=== PATIENT | female | born 1990 | race Caucasian/White ===

== ENCOUNTER 2020-04-07 10:44 | Emergency (ER) | payer MEDICAID, OTHER, SELFPAY ==
[2020-04-07 11:16] VITALS: BP 139/72; PULSE 98; RESP 18; TEMP 36.6; O2SAT 100; BMI 36.3
--- NOTE | 2020-04-07 11:50 | PC.NURSE ---
Pt reports brown spotting since turning to bright red spotting 2 days ago. Denies abd pain and dizziness. Pos preg test at [facility].
--- NOTE | 2020-04-07 11:51 | US_ITS ---
EXAMINATION: FIRST TRIMESTER OB ULTRASOUND CLINICAL INFORMATION: Abdominal pain and bleeding COMPARISON: None TECHNIQUE: Transabdominal and transvaginal first trimester OB ultrasound FINDINGS: The uterus is normal in size and shape measures 6.4 x 3.5 x 4.7 cm in dimension. The endometrium is thickened measuring 1.7 cm. No intrauterine is seen. No focal uterine lesion is seen. The cervix is normal appearing. The right ovary is normal-appearing and measures 2.5 x 1.6 x 1.8 cm. The left ovary measures 3.2 x 3.3 x 3.4 cm and contains a 2.1 x 1.5 x 2 cm simple cyst. There is a small amount of fluid in the pelvis. US/US OB transvaginal IMPRESSION: No intrauterine seen. 2.1 x 1.5 x 2 cm simple left ovarian cyst and small amount of fluid in the pelvis. Correlation with quantitative beta hCG and follow-up OB ultrasound to ensure development of an intrauterine is recommended.
--- NOTE | 2020-04-07 11:51 | US_ITS ---
EXAMINATION: FIRST TRIMESTER OB ULTRASOUND CLINICAL INFORMATION: Abdominal pain and bleeding COMPARISON: None TECHNIQUE: Transabdominal and transvaginal first trimester OB ultrasound FINDINGS: The uterus is normal in size and shape measures 6.4 x 3.5 x 4.7 cm in dimension. The endometrium is thickened measuring 1.7 cm. No intrauterine is seen. No focal uterine lesion is seen. The cervix is normal appearing. The right ovary is normal-appearing and measures 2.5 x 1.6 x 1.8 cm. The left ovary measures 3.2 x 3.3 x 3.4 cm and contains a 2.1 x 1.5 x 2 cm simple cyst. There is a small amount of fluid in the pelvis. US/US OB <= 14 weeks fetus IMPRESSION: No intrauterine seen. 2.1 x 1.5 x 2 cm simple left ovarian cyst and small amount of fluid in the pelvis. Correlation with quantitative beta hCG and follow-up OB ultrasound to ensure development of an intrauterine is recommended.
--- NOTE | 2020-04-07 11:51 | ED.FEMALEGU ---
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 Mode of arrival: ambulatory Limitations: no limitations History of Present Illness MD elicited complaint: vaginal bleeding and pelvic pain Pertinent past history: other (suspects she is 4 to 5 weeks ) Onset (ago): day(s) (5) Location of symptoms: suprapubic Female Urogenital Radiation: Suprapubic and LRQ Quality of pain: sharp Consistency: intermittent Vaginal bleeding: scant Urinary symptoms: Dysuria, Urgency and Frequency Exacerbating factors: none Relieving factors: none Associated symptoms: denies other symptoms Sexual activity: Yes Patient : Yes Possible : at home test positive Related Data : 1 Previous Rx's Medication Instructions Recorded nitrofurantoin monohyd/m-cryst 100 mg PO BID 7 Days #14 cap 04/07/20 [Macrobid] Allergies Allergy/AdvReac Type Severity Reaction Status Date / Time No Known Allergies Allergy Unverified 01/17/20 19:37 [No Known Allergies*] Review of Systems Review of Systems: Constitutional : No Fever, No Chills ENT/Mouth : No sore throat, No Rhinorrhea Eyes: No Eye Pain, No Redness Cardiovascular : No Chest Pain, No SOB Respiratory : No Cough, No Sputum, No Wheezing Gastrointestinal : no Nausea, No Vomiting, No Diarrhea, positive abdominal pain, Genitourinary : positive irregular bleeding, pos Dysuria, pos Urinary Frequency, positive pelvic pain Musculoskeletal : No Myalgias Skin : No rash Neuro : No Weakness, No Headache Psych : No Anxiety/Panic, No Depression Heme/Lymph: No bruising, No Lymphadenopathy Endocrine : No Polyuria, No Polydipsia All other systems reviewed and are negative [facility] Past Medical History Medical History No known health problems : 1 Social History Social History Smoking Status: Never smoker Physical Exam Vital Signs: Vital Signs: Last Vital Signs Temp 98.0 F 04/07/20 13:43 Pulse 92 04/07/20 13:43 Resp 16 04/07/20 13:43 BP 125/78 04/07/20 13:43 Pulse Ox 98 04/07/20 13:43 Body Mass Index 36.3 Appearance: Alert. Oriented X3. No acute distress. Eyes: Pupils equal, round and reactive to light. ENT: Pharynx normal. Neck: Normal inspection. Neck supple. CVS: Normal heart rate and rhythm. Pulses normal. Respiratory: No respiratory distress. Breath sounds normal. Abdomen: Soft and non-tender. no rebound or guarding : no active bleeding, deferred pelvic just underwent one at [facility] Skin: Skin warm and dry. Normal skin color. Normal skin turgor. Extremities: No lower extremity edema. No calf ttp Neuro: Oriented X 3. No motor deficit. No sensory deficit. Course Course Course Narrative: patient with low quant and no IUP on US will discuss with Dr. Block no rebound or guarding, H/H stable BP stable, H/H stable, discussed findings with Dr. Block - follow up quant in 2 days send home with precautions, her abdomen is benign MDM - Female Genitourinary MDM Narrative Medical decision making narrative: 29 yo female G1 approx 4 to 5 weeks here with RLQ pain and spotting - no clots, abdominal exam benign doubt ectopic rupture or appendicitis, will need labs, just had pelvic exam at [facility] will defer repeat, quant level, Rh status, US to evaluate IUP and ovary Lab Data Result diagrams: 04/07/20 12:16 04/07/20 12:16 Labs: Lab Results 04/07/20 04/07/20 04/07/20 Range/Units 12:10 12:16 12:16 WBC 6.9 (4.8-10.8) X10*3/uL RBC 4.40 (4.20-5.50) X10*6/uL Hgb 12.8 (12.0-16.0) g/dl Hct 38.7 (37-47) % MCV 88.0 (80-98) fL MCH 29.1 (27.0-33.0) pg MCHC 33.1 (31.0-35.0) g/dl RDW 12.6 (11.0-16.0) % Plt Count 238 (160-400) X10*3/uL MPV 10.6 (9.4-12.3) fL Immature Gran % (Auto) 0.1 (0.0-0.4) % Neut % (Auto) 79.5 H (45-73) % Lymph % (Auto) 14.4 L (20-40) % Caroline % (Auto) 5.9 (2-11) % Eos % (Auto) 0.0 (0-4) % Baso % (Auto) 0.1 (0-2) % Lymph # (Auto) 1.0 L (1.2-4.9) X10*3/uL [place] # (Auto) 0.4 (0.1-1.2) X10*3/uL Eos # (Auto) 0.0 (0.0-0.4) X10*3/uL Baso # (Auto) 0.0 (0.0-0.2) X10*3/uL Abs Immat Gran (auto) 0.01 (0.00-0.03) X10*3/uL Absolute Neuts (auto) 5.5 (2.0-8.3) X10*3/uL Absolute Nucleated RBC 0.000 (0.0-0.012) X10*3/uL Nucleated RBC % (auto) 0.0 (0.0-0.2) /100WBC Hold Blue Top SEE NOTE Sodium (135-145) mmol/L Potassium (3.3-5.1) mmol/l Chloride (96-108) mmol/L Carbon Dioxide (22-29) mmol/L Anion Gap (12-20) BUN (9-16) mg/dL Creatinine (0.5-1.4) mg/dL Estim Creat Clear Calc Estimated GFR Random Glucose (60-115) mg/dL Calcium (8.4-10.2) mg/dL Beta HCG, Quant mIU/mL Urine Color YELLOW Urine Appearance CLOUDY Urine pH 5.5 (5.0-8.0) Ur Specific [place] >= 1.030 H (1.005-1.025) Urine Protein NEG (NEG-TRACE) MG/DL Urine Glucose (UA) NEG (NEG) MG/DL Urine Ketones >=80 (NEG) MG/DL Urine Blood 3+ H (NEG) Urine Nitrite NEG (NEG) Ur Leukocyte Esterase TRACE H (NEG) Urine RBC 15-29 H (0) /HPF Urine WBC 10-14 H (0-4) /HPF Ur Squamous Epith Cells 4+ /LPF Urine Bacteria 2+ /LPF Blood Type 04/07/20 04/07/20 Range/Units 12:16 12:16 WBC (4.8-10.8) X10*3/uL RBC (4.20-5.50) X10*6/uL Hgb (12.0-16.0) g/dl Hct (37-47) % MCV (80-98) fL MCH (27.0-33.0) pg MCHC (31.0-35.0) g/dl RDW (11.0-16.0) % Plt Count (160-400) X10*3/uL MPV (9.4-12.3) fL Immature Gran % (Auto) (0.0-0.4) % Neut % (Auto) (45-73) % Lymph % (Auto) (20-40) % Caroline % (Auto) (2-11) % Eos % (Auto) (0-4) % Baso % (Auto) (0-2) % Lymph # (Auto) (1.2-4.9) X10*3/uL Caroline # (Auto) (0.1-1.2) X10*3/uL Eos # (Auto) (0.0-0.4) X10*3/uL Baso # (Auto) (0.0-0.2) X10*3/uL Abs Immat Gran (auto) (0.00-0.03) X10*3/uL Absolute Neuts (auto) (2.0-8.3) X10*3/uL Absolute Nucleated RBC (0.0-0.012) X10*3/uL Nucleated RBC % (auto) (0.0-0.2) /100WBC Hold Blue Top Sodium 140 (135-145) mmol/L Potassium 4.6 (3.3-5.1) mmol/l Chloride 104 (96-108) mmol/L Carbon Dioxide 24 (22-29) mmol/L Anion Gap 17 (12-20) BUN 8 L (9-16) mg/dL Creatinine 0.74 (0.5-1.4) mg/dL Estim Creat Clear Calc 105.6 Estimated GFR > 60 Random Glucose 95 (60-115) mg/dL Calcium 9.5 (8.4-10.2) mg/dL Beta HCG, Quant 451 mIU/mL Urine Color Urine Appearance Urine pH (5.0-8.0) Ur Specific [place] (1.005-1.025) Urine Protein (NEG-TRACE) MG/DL Urine Glucose (UA) (NEG) MG/DL Urine Ketones (NEG) MG/DL Urine Blood (NEG) Urine Nitrite (NEG) Ur Leukocyte Esterase (NEG) Urine RBC (0) /HPF Urine WBC (0-4) /HPF Ur Squamous Epith Cells /LPF Urine Bacteria /LPF Blood Type O Positive Discharge Plan Discharge Clinical Impression: Dysfunctional uterine bleeding, Early stage of UTI (urinary tract infection) Qualifiers: Urinary tract infection type: acute cystitis Hematuria presence: with hematuria Qualified Code(s): N30.01 - Acute cystitis with hematuria Patient Disposition: Home, Self-Care Instructions: Ectopic (DC), Threatened Miscarriage (ED), Urinary Tract Infection in (ED) Additional Instructions: return to ED for any worsening symptoms or concerns you're very early - you need to get a repeat hcg test in 2 days to r/o ectopic , early , miscarriage, stay hydrated, return for severe pain, worsening in bleeding Prescriptions: New nitrofurantoin monohyd/m-cryst [Macrobid] 100 mg capsule 100 mg PO BID 7 Days Qty: 14 RF: 0 Referrals: Brendan Block MD [Physician] - 2 days (call today, repeat hormone level in 2 days) Interventions: ED Discharge Assessment Last Done: 04/07/20 14:12 Discharge Date/Time: 04/07/20 14:12 Print Language: Cameroonian
[2020-04-07 12:08] VITALS: BP 136/80; PULSE 80; RESP 16; O2SAT 100
[2020-04-07 12:21] LABS: MANUAL DIFF FLAG NO
[2020-04-07 12:24] LABS: Basophils Percent Auto 0.1 % (0-2); Hematocrit 38.7 % (37-47); Hemoglobin 12.8 g/dl (12.0-16.0); Imm Gran Abs Auto 0.01 X10*3/uL (0.00-0.03); Imm Gran Pct Auto 0.1 % (0.0-0.4); Lymphocytes Percent Auto 14.4 % (20-40); Mean Corpuscular HGB Conc 33.1 g/dl (31.0-35.0); Mean Corpuscular Hemoglobin 29.1 pg (27.0-33.0); Mean Platelet Volume 10.6 fL (9.4-12.3); Monocytes Absolute Auto 0.4 X10*3/uL (0.1-1.2); Monocytes Percent Auto 5.9 % (2-11); Neutrophils Absolute Auto 5.5 X10*3/uL (2.0-8.3); Neutrophils Percent Auto 79.5 % (45-73); Platelet Count 238 X10*3/uL (160-400); Red Cell Distribution Width 12.6 % (11.0-16.0); White Blood Count 6.9 X10*3/uL (4.8-10.8)
[2020-04-07 12:25] LABS: Appearance Urine CLOUDY; Color Urine YELLOW; Glucose Urine UA NEG (NEG); Leukocyte Esterase Urine TRACE (NEG); Nitrite Urine NEG (NEG); PH 5.5 (5.0-8.0); Specific Gravity - Urine >= 1.030 (1.005-1.025); Urine Blood 3+ (NEG); Urine Ketones >=80 MG/DL (NEG); Urine Protein NEG (NEG-TRACE)
[2020-04-07 12:32] LABS: Bacteria Urine 2+ /LPF; Squamous Epithelial Cell Urine 4+ /LPF
[2020-04-07 12:51] LABS: Anion Gap 17 (12-20); Blood Urea Nitrogen 8 mg/dL (9-16); Calcium 9.5 mg/dL (8.4-10.2); Carbon Dioxide 24 mmol/L (22-29); Chloride 104 mmol/L (96-108); Creatinine Clr Calc Pharmacy 105.6; Estimated Glomerular Filt Rate > 60; Glucose Random 95 mg/dL (60-115); Potassium 4.6 mmol/l (3.3-5.1); Sodium 140 mmol/L (135-145)
[2020-04-07 12:58] LABS: HCG Quantitative 451 mIU/mL
[2020-04-07 13:01] VITALS: BP 128/76
--- NOTE | 2020-04-07 13:41 | PM.GYNCN ---
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 Hoang regarding Cinthia Wheeler is a 29 year old female . Patient is 4-5 weeks of gestation presented with vaginal spotting and mild groin pain. 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 - Results Labs CBC & Chem 7: 04/07/20 12:16 04/07/20 12:16 Labs: Short CBC 04/07/20 Range/Units 12:16 WBC 6.9 (4.8-10.8) X10*3/uL Hgb 12.8 (12.0-16.0) g/dl Hct 38.7 (37-47) % Plt Count 238 (160-400) X10*3/uL BMP 04/07/20 12:16 Sodium 140 Potassium 4.6 Chloride 104 Carbon Dioxide 24 BUN 8 L Creatinine 0.74 Calcium 9.5 Urine 04/07/20 Range/Units 12:10 Urine Color YELLOW Urine Appearance CLOUDY Urine pH 5.5 (5.0-8.0) Ur Specific [place] >= 1.030 H (1.005-1.025) Urine Protein NEG (NEG-TRACE) MG/DL Urine Glucose (UA) NEG (NEG) MG/DL Assessment and Plan (1) Early stage of : Status: Acute HCG in 48 hours, SAB/ectopic instructions to be given the patient, the patient is to come in to the emergency room or or call back in case of abdominal pain vaginal bleeding nausea or vomiting otherwise follow-up in our office in 48 hours. Discussed the plan with Dr. Hoang
[2020-04-07 13:43] VITALS: BP 125/78; PULSE 92; RESP 16; TEMP 36.7; O2SAT 98
== END 2020-04-07 14:12 | disposition home or self-care (01) ==
PROVIDERS: Emergency Provider Emergency Medicine; PCP Internal Medicine
DX: O20.9 Hemorrhage in early pregnancy, unspecified (principal); Z3A.01 Less than 8 weeks gestation of pregnancy; O23.11 Infections of bladder in pregnancy, first trimester; N30.01 Acute cystitis with hematuria
CPT/HCPCS: 36415; 76801; 76817; 80048; 81001; 84702; 85025; 86900; 86901; 87086; 99283; 99284

== ENCOUNTER 2020-04-09 08:14 | Outpatient (REF) | payer MEDICAID, OTHER, SELFPAY ==
[2020-04-09 09:36] LABS: HCG Quantitative 655 mIU/mL
[2020-04-12 06:37] LABS: CT PCR NOT DETECTED (Not Detect.); NG PCR NOT DETECTED (Not Detect.)
== END 2020-04-09 08:15 | disposition home or self-care (01) ==
LOC: HO.LAB 08:14
PROVIDERS: Visit Provider Obstetrics & Gynecology
DX: Z34.90 Encounter for supervision of normal pregnancy, unspecified, unspecified trimester (principal)
CPT/HCPCS: 84702; 87491; 87591; 99212

== ENCOUNTER 2020-04-11 08:32 | Outpatient (REF) | payer MEDICAID, SELFPAY ==
--- NOTE | 2020-04-11 08:48 | US_ITS ---
EXAMINATION: ULTRASOUND OB LESS THAN 14 WEEKS. CLINICAL INFORMATION: Redundant . COMPARISON: None TECHNIQUE: Routine transabdominal ultrasound pelvis is performed FINDINGS: The uterus is midline. No intrauterine of pole seen. There is no visualization of yolk sac or heart beat. The right ovary measures 2.4 x 1.8 x 2.0 cm and appears unremarkable. Left ovary measures 3.0 x 2.3 x 2.6 cm. There is anechoic cyst measuring 2.2 x 1.9 x 2.1 cm. There is no free fluid in the cul-de-sac. US/US OB <= 14 weeks fetus IMPRESSION: No intrauterine seen. No pole identified. There is no adnexal mass. There is a small cyst 2.2 cm left ovarian cyst. Otherwise both ovaries are unremarkable.
--- NOTE | 2020-04-11 08:48 | US_ITS ---
EXAMINATION: ULTRASOUND OB LESS THAN 14 WEEKS. CLINICAL INFORMATION: Redundant . COMPARISON: None TECHNIQUE: Routine transabdominal ultrasound pelvis is performed FINDINGS: The uterus is midline. No intrauterine of pole seen. There is no visualization of yolk sac or heart beat. The right ovary measures 2.4 x 1.8 x 2.0 cm and appears unremarkable. Left ovary measures 3.0 x 2.3 x 2.6 cm. There is anechoic cyst measuring 2.2 x 1.9 x 2.1 cm. There is no free fluid in the cul-de-sac. US/US OB transvaginal IMPRESSION: No intrauterine seen. No pole identified. There is no adnexal mass. There is a small cyst 2.2 cm left ovarian cyst. Otherwise both ovaries are unremarkable.
[2020-04-11 10:02] LABS: HCG Quantitative 945 mIU/mL
== END 2020-04-11 08:33 | disposition home or self-care (01) ==
LOC: HO.US 08:32
PROVIDERS: PCP Internal Medicine; Visit Provider Obstetrics & Gynecology
DX: Z34.90 Encounter for supervision of normal pregnancy, unspecified, unspecified trimester (principal)
CPT/HCPCS: 76801; 76817; 84702; 99212

== ENCOUNTER 2020-04-13 10:08 | Emergency (ER) | payer MEDICAID, OTHER, SELFPAY ==
[2020-04-13 10:40] VITALS: BP 131/88; PULSE 89; RESP 15; TEMP 36.8; O2SAT 99; BMI 33.6
--- NOTE | 2020-04-13 10:50 | US_ITS ---
EXAMINATION: ULTRASOUND OB LESS THAN 14 WEEKS CLINICAL INFORMATION: Abdominal pain, COMPARISON: Ultrasound OB 04/11/2020 TECHNIQUE: Routine transabdominal and transvaginal ultrasound of pelvis is performed. FINDINGS: The uterus appears midline measuring 6.8 cm in length, 3.48 cm in AP and 5.7 cm in transverse dimension.. There is no intrauterine gestational sac, pole or heart visualized. No yolk sac or motion either. The endometrial thickness is 0.81 cm. A tiny anechoic cyst is seen in the cervix most likely nabothian cysts. A migrated small gestational sac cannot be excluded. The right ovary measures 2.93 x 1.74 x 2.59 cm. The ovary is unremarkable. The left ovary measures 3.46 a 2.18 x 3.437. A small corpus luteal cyst is visualized measuring 1.2 x 1.5 x 1.7 cm. There is minimal free fluid in the cul-de-sac. US/US OB <= 14 weeks fetus IMPRESSION: No intrauterine gestational sac or pole seen. There is a small anechoic cyst in the cervix most likely nabothian cyst, less likely migrated gestational sac. Small corpus luteal cyst left ovary. Previously there is a small anechoic cyst in the left ovary measuring 2.2 cm. Right ovary is unremarkable. Small free fluid in cul-de-sac. No adnexal mass seen.
--- NOTE | 2020-04-13 10:50 | US_ITS ---
EXAMINATION: ULTRASOUND OB LESS THAN 14 WEEKS CLINICAL INFORMATION: Abdominal pain, COMPARISON: Ultrasound OB 04/11/2020 TECHNIQUE: Routine transabdominal and transvaginal ultrasound of pelvis is performed. FINDINGS: The uterus appears midline measuring 6.8 cm in length, 3.48 cm in AP and 5.7 cm in transverse dimension.. There is no intrauterine gestational sac, pole or heart visualized. No yolk sac or motion either. The endometrial thickness is 0.81 cm. A tiny anechoic cyst is seen in the cervix most likely nabothian cysts. A migrated small gestational sac cannot be excluded. The right ovary measures 2.93 x 1.74 x 2.59 cm. The ovary is unremarkable. The left ovary measures 3.46 a 2.18 x 3.437. A small corpus luteal cyst is visualized measuring 1.2 x 1.5 x 1.7 cm. There is minimal free fluid in the cul-de-sac. US/US OB transvaginal IMPRESSION: No intrauterine gestational sac or pole seen. There is a small anechoic cyst in the cervix most likely nabothian cyst, less likely migrated gestational sac. Small corpus luteal cyst left ovary. Previously there is a small anechoic cyst in the left ovary measuring 2.2 cm. Right ovary is unremarkable. Small free fluid in cul-de-sac. No adnexal mass seen.
--- NOTE | 2020-04-13 10:56 | ED.ABDPAIN ---
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 Otherwise no other associated symptoms in particular no nausea, no vomiting. Nothing improves the pain or nothing relieves the pain, never had similar pain in the past. Related Data Previous Rx's Medication Instructions Recorded nitrofurantoin monohyd/m-cryst 100 mg PO BID 7 Days #14 cap 04/07/20 [Macrobid] ibuprofen 800 mg PO TID PRN #60 tab 04/13/20 ondansetron 4 mg PO Q6H PRN #20 tab 04/13/20 oxycodone [Roxicodone] 5 mg PO Q6H PRN #14 tab 04/13/20 Allergies Allergy/AdvReac Type Severity Reaction Status Date / Time No Known Allergies Allergy Unverified 04/09/20 09:50 [No Known Allergies*] Review of Systems Review of Systems All other systems are reviewed and are negative Constitutional: Reports as per HPI and Reports no additional constitutional complaints Eyes: Reports as per HPI and Reports no additional eye complaints Reports system reviewed and no additional complaints, except as documented Cardiovascular: Reports as per HPI and Reports no additional cardiovascular complaints Respiratory: Reports as per HPI and Reports no additional respiratory complaints Gastrointestinal: Reports as per HPI and Reports no additional gastrointestinal complaints Genitourinary: Reports no additional female genitourinary complaints Musculoskeletal: Reports no additional musculoskeletal complaints Skin/Breast: Reports system reviewed and no additional complaints, except as docu Psychiatric: Reports no additional psychiatric complaints Endocrine: Reports no additional endocrine complaints Hematologic/Lymphatic: Reports no additional hematologic/lymphatic complaints Allergic/Immunologic: Reports no additional allergic/immunologic complaints Reports system reviewed and no additional complaints, except as documented and Reports Abnormal speech present Physical Exam Vital Signs: Vital Signs: Last Vital Signs Temp 98.6 F 04/13/20 11:46 Pulse 67 04/13/20 14:00 Resp 16 04/13/20 14:00 BP 128/69 04/13/20 14:00 Pulse Ox 96 04/13/20 14:00 Body Mass Index 33.6 Vital signs have been reviewed as normal and appeared to be correct. Blood pressure normal. Heart rate normal. Respiration rate normal. Temperature normal. Oxygen saturation normal. Appearance: Alert. Oriented X3. No acute distress. Head: Normal external exam. Normocephalic. Atraumatic. No Sewell signs noted. No raccoon eyes noted Eyes: PERRLA. EOMI. Conjunctiva and sclera normal. Eyelids normal. ENT: EAC normal. TM's Normal. Pharynx normal. Uvula midline. Moist mucous membranes. No trismus noted. No drooling noted. No muffled voice noted. Neck: Normal inspection. Neck supple. FROM. No adenopathy. Thyroid Normal. No meningeal signs. No neck mass noted. CVS: Normal heart rate and rhythm. Heart sound normal. No murmurs noted. Pulses normal throughout. Respiratory: No respiratory distress. Painless inspiration. Breath sounds normal. No wheezes/rales/rhonchi noted. Chest nontender. No accessory muscle usage noted or decreased air movement noted. Abdomen: Soft and nontender. Bowel sounds normal in all 4 quadrants. No distention noted. No organomegaly noted. No visible injury noted. Back: No CVA tenderness. Full range of motion noted. Skin: Skin warm and dry. Normal skin color. Normal skin turgor. No rashes/lesions/lacerations noted. Extremities: No lower extremity edema. Extremities exhibit normal range of motion. Extremities nontender. Neuro: Oriented X 3. No motor deficit. No sensory deficit. Reflexes normal. MDM - Abdominal Pain MDM Narrative Medical decision making narrative: Assessment and plan. 29-year-old female in her early , patient presented with right lower quadrant pain for the past 9 days with vaginal bleed,. No IUP on the ultrasounds with abnormal rising of serum hCG serious, patient was seen and examined and evaluated by Dr. Cardozo from OBGYN service, who made a decision to give the patient methotrexate, medicine was ordered by Dr. aCrdozo to pharmacy will be given to the patient will observe the patient for 30 minutes after given the medicine, patient will need to visit with Dr. Cardozo in 2 days to repeat hCG. Patient was made aware of the plan using the interpretation service patient fully understand risk and side effect of the procedure today. Lab Data Result diagrams: 04/13/20 11:50 04/13/20 11:50 Labs: Lab Results 04/13/20 04/13/20 Range/Units 11:50 11:50 WBC 2.7 L (4.8-10.8) X10*3/uL RBC 4.69 (4.20-5.50) X10*6/uL Hgb 13.6 (12.0-16.0) g/dl Hct 40.7 (37-47) % MCV 86.8 (80-98) fL MCH 29.0 (27.0-33.0) pg MCHC 33.4 (31.0-35.0) g/dl RDW 12.2 (11.0-16.0) % Plt Count 185 (160-400) X10*3/uL MPV 11.2 (9.4-12.3) fL Immature Gran % (Auto) 0.4 (0.0-0.4) % Neut % (Auto) 39.9 L (45-73) % Lymph % (Auto) 44.8 H (20-40) % [place] % (Auto) 14.9 H (2-11) % Eos % (Auto) 0.0 (0-4) % Baso % (Auto) 0.0 (0-2) % Lymph # (Auto) 1.2 (1.2-4.9) X10*3/uL [place] # (Auto) 0.4 (0.1-1.2) X10*3/uL Eos # (Auto) 0.0 (0.0-0.4) X10*3/uL Baso # (Auto) 0.0 (0.0-0.2) X10*3/uL Abs Immat Gran (auto) 0.01 (0.00-0.03) X10*3/uL Absolute Neuts (auto) 1.1 L (2.0-8.3) X10*3/uL Absolute Nucleated RBC 0.000 (0.0-0.012) X10*3/uL Nucleated RBC % (auto) 0.0 (0.0-0.2) /100WBC Sodium 138 (135-145) mmol/L Potassium 4.1 (3.3-5.1) mmol/l Chloride 101 (96-108) mmol/L Carbon Dioxide 25 (22-29) mmol/L Anion Gap 16 (12-20) BUN 9 (9-16) mg/dL Creatinine 0.71 (0.5-1.4) mg/dL Estim Creat Clear Calc 114.5 Estimated GFR > 60 Random Glucose 97 (60-115) mg/dL Calcium 8.9 D (8.4-10.2) mg/dL Total Bilirubin 0.4 (0.0-1.0) mg/dL Direct Bilirubin 0.2 (0.0-0.5) mg/dL AST 22 (5-31) U/L ALT 22 (0-31) U/L Alkaline Phosphatase 27 L (39-117) U/L Total Protein 7.8 (6.5-8.0) g/dL Albumin 4.4 (3.5-5.0) g/dL Lipase 22 (8-78) U/L Beta HCG, Quant 1217 mIU/mL Imaging Data Limited Ob pelvis ultrasound: Radiologist's impression: No intrauterine gestational sac or pole seen. There is a small anechoic cyst in the cervix most likely nabothian cyst, less likely migrated gestational sac. Small corpus luteal cyst left ovary. Previously there is a small anechoic cyst in the left ovary measuring 2.2 cm. Right ovary is unremarkable. Small free fluid in cul-de-sac. No adnexal mass seen. Discharge Plan Discharge Clinical Impression: Ectopic Qualifiers: Location of ectopic : unspecified location Intrauterine status: without intrauterine Qualified Code(s): O00.90 - Unspecified ectopic without intrauterine Patient Disposition: Home, Self-Care Instructions: Ectopic (DC) Prescriptions: New ibuprofen 800 mg tablet 800 mg PO TID PRN (Reason: pain) Qty: 60 RF: 1 oxycodone [Roxicodone] 5 mg tablet 5 mg PO Q6H PRN (Reason: pain) Qty: 14 RF: 0 ondansetron 4 mg tablet,disintegrating 4 mg PO Q6H PRN (Reason: nausea and vomiting) Qty: 20 RF: 0 Continued nitrofurantoin monohyd/m-cryst [Macrobid] 100 mg capsule 100 mg PO BID 7 Days Qty: 14 RF: 0 Referrals: Vee Cardozo MD [Physician] - 2 days PMF Past Medical History Medical History No known health problems Social History Social History Alcohol intake: never Smoking Status: Never smoker Use of substances other than those prescribed or required for medical reasons: No Advance Directives: No Advance Directives Information Provided: No Sexual orientation: Straight/Heterosexual Gender identity: female
[2020-04-13 11:46] VITALS: BP 133/82; PULSE 90; RESP 16; TEMP 37; O2SAT 99
[2020-04-13 11:57] LABS: MANUAL DIFF FLAG NO
[2020-04-13 11:58] LABS: Hematocrit 40.7 % (37-47); Hemoglobin 13.6 g/dl (12.0-16.0); Imm Gran Abs Auto 0.01 X10*3/uL (0.00-0.03); Imm Gran Pct Auto 0.4 % (0.0-0.4); Lymphocytes Absolute Auto 1.2 X10*3/uL (1.2-4.9); Lymphocytes Percent Auto 44.8 % (20-40); Mean Corpuscular HGB Conc 33.4 g/dl (31.0-35.0); Mean Corpuscular Volume 86.8 fL (80-98); Mean Platelet Volume 11.2 fL (9.4-12.3); Monocytes Absolute Auto 0.4 X10*3/uL (0.1-1.2); Monocytes Percent Auto 14.9 % (2-11); Neutrophils Absolute Auto 1.1 X10*3/uL (2.0-8.3); Neutrophils Percent Auto 39.9 % (45-73); Platelet Count 185 X10*3/uL (160-400); Red Blood Count 4.69 X10*6/uL (4.20-5.50); Red Cell Distribution Width 12.2 % (11.0-16.0); White Blood Count 2.7 X10*3/uL (4.8-10.8)
[2020-04-13 12:00] VITALS: BP 133/82; PULSE 79; RESP 16; O2SAT 96
[2020-04-13 12:41] LABS: Alanine Aminotransferase 22 U/L (0-31); Albumin Level 4.4 g/dL (3.5-5.0); Alkaline Phosphatase 27 U/L (39-117); Anion Gap 16 (12-20); Aspartate Amino Transferase 22 U/L (5-31); Bilirubin Direct 0.2 mg/dL (0.0-0.5); Bilirubin Total 0.4 mg/dL (0.0-1.0); Blood Urea Nitrogen 9 mg/dL (9-16); Calcium 8.9 mg/dL (8.4-10.2); Carbon Dioxide 25 mmol/L (22-29); Chloride 101 mmol/L (96-108); Creatinine Clr Calc Pharmacy 114.5; Estimated Glomerular Filt Rate > 60; Glucose Random 97 mg/dL (60-115); Lipase 22 U/L (8-78); Potassium 4.1 mmol/l (3.3-5.1); Sodium 138 mmol/L (135-145); Total Protein 7.8 g/dL (6.5-8.0)
[2020-04-13 12:47] LABS: HCG Quantitative 1217 mIU/mL
[2020-04-13] MEDS: 0.9 % Sodium Chloride 1,000 ML 999 ML IVCONT (13:00)
--- NOTE | 2020-04-13 13:19 | PC.NURSE ---
dr. huff (ob) at bedside pt aware of plan of care with spanish medical interpreter.
[2020-04-13 14:00] VITALS: BP 128/69; PULSE 67; RESP 16; O2SAT 96
--- NOTE | 2020-04-13 14:47 | P.CONOB_ITS ---
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 She was previously seen by Dr. Block and advised to present to the ER today for repeat HCG in the setting of desired and abnormal rise in the HCG level. She reports that her pain is better right now. She has been having RLQ pain for nine days. She has previously been diagnosed with PCOS and reports that periods are irregular. She had been trying to get . She denies feeling SOB, chest pain, dizziness. 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 - Review of Systems Review of Systems ROS Unobtainable: All systems reviewed & are unremarkable except as noted in HPI and below OB PMFSH Past Medical History Medical History No known health problems Social History Social History Alcohol intake: never Smoking Status: Never smoker Use of substances other than those prescribed or required for medical reasons: No Advance Directives: No Advance Directives Information Provided: No Sexual orientation: Straight/Heterosexual Gender identity: female Meds Allergies Allergy/AdvReac Type Severity Reaction Status Date / Time No Known Allergies Allergy Unverified 04/09/20 09:50 [No Known Allergies*] 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 Physical Exam Vitals Vital signs: Temp Pulse Resp BP Pulse Ox 98.6 F 79 16 133/82 96 04/13/20 11:46 04/13/20 12:00 04/13/20 12:00 04/13/20 12:00 04/13/20 12:00 Body Mass Index 33.6 Constitutional General Appearance: Healthy appearing, Obese and Other (no acute distress) Lungs Respiratory Effort: No intercostal retractions and No accessory muscle usage 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 - Results Labs CBC & Chem 7: 04/13/20 11:50 04/13/20 11:50 Labs: Short CBC 04/13/20 Range/Units 11:50 WBC 2.7 L (4.8-10.8) X10*3/uL Hgb 13.6 (12.0-16.0) g/dl Hct 40.7 (37-47) % Plt Count 185 (160-400) X10*3/uL BMP 04/13/20 11:50 Sodium 138 Potassium 4.1 Chloride 101 Carbon Dioxide 25 BUN 9 Creatinine 0.71 Calcium 8.9 D Liver Function 04/13/20 Range/Units 11:50 Total Bilirubin 0.4 (0.0-1.0) mg/dL Direct Bilirubin 0.2 (0.0-0.5) mg/dL AST 22 (5-31) U/L ALT 22 (0-31) U/L Alkaline Phosphatase 27 L (39-117) U/L Albumin 4.4 (3.5-5.0) g/dL Assessment and Plan (1) Encounter for assessment for suspected ectopic : Problem details: This patient has a third abnormal rise in HCG: last HCG on 04/11 was 945; today is 1215, well below the expected minimal rise (seen in 99% of normal intrauterine pregnancies). Given RLQ pain, this is highly suspicious for ectopic . I explained to the patient that she has an abnormal , based on the abnormal rise in HCG. Based on US, we do not know whether this is an abnormal located in the uterus or a located outside of the uterus. I explained that we can do a procedure (D&C) to confirm the location; if what I remove from the uterus does not show any product, then she would need medical treatment of ectopic with methotrexate, a chemotherapeutic agent. I explained that if the procedure shows tissue in the uterus, then she would likely not require further treatment. I explained based on her pain, I suspect the is not located in the uterus, however I cannot know that for sure. I explained we can also skip the procedure and treat her for presumed ectopic with methotrexate. The down side of doing so is the possibility of giving her a chemotherapeutic agent that she may not have needed. We reviewed the common side effects of methotrexate, the necessary follow up, and activity restrictions during treatment. All of her questions were answered to the best of my ability. She elected to proceed with methotrexate administration. Consent reviewed and signed. Order form filled out. Rx's for pain and nausea sent to the pharmacy. Follow up with repeat bHcg level and phone visit on Tuesday. Status: Acute
[2020-04-13 16:01] LABS: Alanine Aminotransferase 20 U/L (0-31); Aspartate Amino Transferase 21 U/L (5-31); Blood Urea Nitrogen 7 mg/dL (9-16); Creatinine Clr Calc Pharmacy 119.6; Estimated Glomerular Filt Rate > 60
[2020-04-13 16:48] VITALS: BP 139/81; PULSE 95; RESP 16; O2SAT 100
[2020-04-13] MEDS: metHOTREXate sodium 125 MG/5 ML SYRINGE 90 MG IM (16:49)
[2020-04-13 17:36] VITALS: BP 117/70; PULSE 76; RESP 17; TEMP 37.2; O2SAT 99
[2020-04-13 17:47] LABS: Appearance Urine HAZY; Color Urine YELLOW; Glucose Urine UA NEG (NEG); Leukocyte Esterase Urine NEG (NEG); Nitrite Urine NEG (NEG); PH 5.5 (5.0-8.0); Specific Gravity - Urine 1.025 (1.005-1.025); Urine Blood 3+ (NEG); Urine Ketones 40 MG/DL (NEG); Urine Protein NEG (NEG-TRACE)
[2020-04-13 17:54] LABS: RBC Urine 50-75 /HPF (0); Squamous Epithelial Cell Urine 1+ /LPF
== END 2020-04-13 17:44 | disposition home or self-care (01) ==
PROVIDERS: Obstetrics & Gynecology; Emergency Provider Emergency Medicine; PCP Internal Medicine
DX: O00.90 Unspecified ectopic pregnancy without intrauterine pregnancy (principal); Z3A.01 Less than 8 weeks gestation of pregnancy
CPT/HCPCS: 36415; 76801; 76817; 80048; 80076; 81001; 82565; 83690; 84450; 84460; 84520; 84702; 85025; 96360; 96372; 99284; J9250

== ENCOUNTER 2020-04-16 12:20 | Outpatient (REF) | payer MEDICAID, SELFPAY ==
[2020-04-16 14:18] LABS: HCG Quantitative 1718 mIU/mL
== END 2020-04-16 12:21 | disposition home or self-care (01) ==
LOC: HO.LAB 12:20
PROVIDERS: PCP Internal Medicine; Visit Provider Obstetrics & Gynecology
DX: Z32.00 Encounter for pregnancy test, result unknown (principal)
CPT/HCPCS: 84702

== ENCOUNTER 2020-04-18 06:32 | Outpatient (REF) | payer MEDICAID, SELFPAY ==
[2020-04-18 07:39] LABS: Alanine Aminotransferase 38 U/L (0-31); Albumin Level 4.1 g/dL (3.5-5.0); Alkaline Phosphatase 24 U/L (39-117); Anion Gap 13 (12-20); Aspartate Amino Transferase 28 U/L (5-31); Bilirubin Total 0.4 mg/dL (0.0-1.0); Blood Urea Nitrogen 6 mg/dL (9-16); Calcium 8.8 mg/dL (8.4-10.2); Carbon Dioxide 28 mmol/L (22-29); Chloride 103 mmol/L (96-108); Estimated Glomerular Filt Rate > 60; Glucose Random 102 mg/dL (60-115); Potassium 3.9 mmol/l (3.3-5.1); Sodium 140 mmol/L (135-145); Total Protein 7.2 g/dL (6.5-8.0)
[2020-04-18 07:45] LABS: HCG Quantitative 1712 mIU/mL
[2020-04-18 11:06] LABS: MANUAL DIFF FLAG NO
[2020-04-18 11:12] LABS: Eosinophils Percent Auto 0.3 % (0-4); Hematocrit 36.2 % (37-47); Hemoglobin 12.3 g/dl (12.0-16.0); Imm Gran Abs Auto 0.01 X10*3/uL (0.00-0.03); Imm Gran Pct Auto 0.3 % (0.0-0.4); Lymphocytes Absolute Auto 0.9 X10*3/uL (1.2-4.9); Lymphocytes Percent Auto 25.6 % (20-40); Mean Corpuscular Hemoglobin 29.3 pg (27.0-33.0); Mean Corpuscular Volume 86.2 fL (80-98); Mean Platelet Volume 11.6 fL (9.4-12.3); Monocytes Absolute Auto 0.2 X10*3/uL (0.1-1.2); Monocytes Percent Auto 5.9 % (2-11); Neutrophils Absolute Auto 2.4 X10*3/uL (2.0-8.3); Neutrophils Percent Auto 67.9 % (45-73); Platelet Count 162 X10*3/uL (160-400); White Blood Count 3.6 X10*3/uL (4.8-10.8)
[2020-04-18 11:41] LABS: Alanine Aminotransferase 41 U/L (0-31); Aspartate Amino Transferase 31 U/L (5-31)
== END 2020-04-18 06:33 | disposition home or self-care (01) ==
LOC: HO.LAB 06:32
PROVIDERS: Obstetrics & Gynecology; Visit Provider Obstetrics & Gynecology
DX: O00.90 Unspecified ectopic pregnancy without intrauterine pregnancy (principal)
CPT/HCPCS: 36415; 80053; 84450; 84460; 84702; 85025; 86850; 86870; 86900; 86901; 87491; 87591; 99212

== ENCOUNTER 2020-04-21 08:09 | Outpatient (REF) | payer MEDICAID, SELFPAY ==
[2020-04-21 08:57] LABS: HCG Quantitative 1506 mIU/mL
[2020-04-23 12:40] LABS: C. trachomatis RNA TMA NOT DETECTED
[2020-04-23 12:43] LABS: N. gonorrhoeae RNA TMA NOT DETECTED
== END 2020-04-21 08:10 | disposition home or self-care (01) ==
LOC: HO.LAB 08:09
PROVIDERS: Obstetrics & Gynecology; PCP Internal Medicine; Visit Provider Obstetrics & Gynecology
DX: Z32.00 Encounter for pregnancy test, result unknown (principal)
CPT/HCPCS: 84702; 87491; 87591

== ENCOUNTER 2020-04-24 06:37 | Outpatient (REF) | payer MEDICAID, SELFPAY ==
[2020-04-24 07:41] LABS: Hemoglobin 10.7 g/dl (12.0-16.0); Neutrophils Absolute Auto 1.1 X10*3/uL (2.0-8.3); Red Cell Distribution Width 11.9 % (11.0-16.0)
[2020-04-24 07:42] LABS: Basophils Percent Auto 0.4 % (0-2); Eosinophils Percent Auto 0.4 % (0-4); Hematocrit 32.5 % (37-47); Lymphocytes Absolute Auto 1.2 X10*3/uL (1.2-4.9); Lymphocytes Percent Auto 45.2 % (20-40); Mean Corpuscular HGB Conc 32.9 g/dl (31.0-35.0); Mean Corpuscular Hemoglobin 28.7 pg (27.0-33.0); Mean Corpuscular Volume 87.1 fL (80-98); Mean Platelet Volume 11.2 fL (9.4-12.3); Monocytes Absolute Auto 0.3 X10*3/uL (0.1-1.2); Monocytes Percent Auto 10.8 % (2-11); Neutrophils Percent Auto 43.2 % (45-73); Platelet Count 131 X10*3/uL (160-400); Red Blood Count 3.73 X10*6/uL (4.20-5.50); White Blood Count 2.6 X10*3/uL (4.8-10.8)
[2020-04-24 08:04] LABS: Alanine Aminotransferase 66 U/L (0-31); Alkaline Phosphatase 32 U/L (39-117); Anion Gap 13 (12-20); Aspartate Amino Transferase 31 U/L (5-31); Bilirubin Total 0.3 mg/dL (0.0-1.0); Blood Urea Nitrogen 11 mg/dL (9-16); Calcium 8.8 mg/dL (8.4-10.2); Carbon Dioxide 26 mmol/L (22-29); Chloride 105 mmol/L (96-108); Estimated Glomerular Filt Rate > 60; Glucose Random 93 mg/dL (60-115); Potassium 4.1 mmol/l (3.3-5.1); Sodium 140 mmol/L (135-145); Total Protein 6.9 g/dL (6.5-8.0)
[2020-04-24 08:12] LABS: HCG Quantitative 1030 mIU/mL
[2020-04-26 10:42] LABS: C. trachomatis RNA TMA NOT DETECTED (NOT DETECTED); N. gonorrhoeae RNA TMA NOT DETECTED (NOT DETECTED)
== END 2020-04-24 06:38 | disposition home or self-care (01) ==
LOC: HO.LAB 06:37
PROVIDERS: PCP Internal Medicine; Visit Provider Obstetrics & Gynecology
DX: Z32.00 Encounter for pregnancy test, result unknown (principal)
CPT/HCPCS: 36415; 80053; 84702; 85025; 87491; 87591

== ENCOUNTER 2020-04-30 06:41 | Outpatient (REF) | payer MEDICAID, SELFPAY ==
[2020-04-30 07:47] LABS: Alanine Aminotransferase 36 U/L (0-31); Aspartate Amino Transferase 21 U/L (5-31)
[2020-04-30 10:21] LABS: HCG Quantitative 392 mIU/mL
[2020-05-03 08:47] LABS: C. trachomatis RNA TMA NOT DETECTED (NOT DETECTED); N. gonorrhoeae RNA TMA NOT DETECTED (NOT DETECTED)
== END 2020-04-30 06:42 | disposition home or self-care (01) ==
LOC: HO.LAB 06:41
PROVIDERS: PCP Internal Medicine; Referring Provider Obstetrics & Gynecology; Visit Provider Obstetrics & Gynecology
DX: Z32.00 Encounter for pregnancy test, result unknown (principal)
CPT/HCPCS: 84450; 84460; 84702; 87491; 87591

== ENCOUNTER 2020-05-07 06:14 | Outpatient (REF) | payer MEDICAID, SELFPAY ==
[2020-05-07 07:45] LABS: HCG Quantitative 212 mIU/mL
[2020-05-08 18:27] LABS: C. trachomatis RNA TMA NOT DETECTED (NOT DETECTED); N. gonorrhoeae RNA TMA NOT DETECTED (NOT DETECTED)
== END 2020-05-07 06:15 | disposition home or self-care (01) ==
LOC: HO.LAB 06:14
PROVIDERS: Obstetrics & Gynecology; Visit Provider Obstetrics & Gynecology
DX: O00.90 Unspecified ectopic pregnancy without intrauterine pregnancy (principal)
CPT/HCPCS: 36415; 84702; 87491; 87591

== ENCOUNTER 2020-05-14 07:00 | Outpatient (REF) | payer MEDICAID, SELFPAY ==
[2020-05-14 08:22] LABS: HCG Quantitative 22 mIU/mL
[2020-05-15 18:52] LABS: C. trachomatis RNA TMA NOT DETECTED (NOT DETECTED); N. gonorrhoeae RNA TMA NOT DETECTED (NOT DETECTED)
== END 2020-05-14 07:01 | disposition home or self-care (01) ==
LOC: HO.LAB 07:00
PROVIDERS: PCP Internal Medicine; Visit Provider Obstetrics & Gynecology
DX: O20.0 Threatened abortion (principal); O98.819 Other maternal infectious and parasitic diseases complicating pregnancy, unspecified trimester; B37.3 Candidiasis of vulva and vagina; Z3A.00 Weeks of gestation of pregnancy not specified
CPT/HCPCS: 36415; 84702; 87491; 87591

== ENCOUNTER 2020-05-21 06:19 | Outpatient (REF) | payer MEDICAID, SELFPAY ==
[2020-05-21 07:54] LABS: HCG Quantitative < 2 mIU/mL
== END 2020-05-21 06:20 | disposition home or self-care (01) ==
LOC: HO.LAB 06:19
PROVIDERS: PCP Internal Medicine; Visit Provider Obstetrics & Gynecology
DX: O00.90 Unspecified ectopic pregnancy without intrauterine pregnancy (principal)
CPT/HCPCS: 36415; 84702

== ENCOUNTER 2020-06-10 12:46 | Outpatient (REF) | payer MEDICAID, SELFPAY ==
[2020-06-11 09:56] LABS: BV Int Neg Control Negative (Negative); BV Int Pos Control Positive (Positive)
== END 2020-06-10 12:47 | disposition home or self-care (01) ==
LOC: HO.LAB 12:46
PROVIDERS: Visit Provider Obstetrics & Gynecology
DX: Z01.419 Encounter for gynecological examination (general) (routine) without abnormal findings (principal); B96.89 Other specified bacterial agents as the cause of diseases classified elsewhere; N76.0 Acute vaginitis; R10.31 Right lower quadrant pain
CPT/HCPCS: 87480; 87510; 87660

== ENCOUNTER 2020-09-21 07:27 | Emergency (ER) | payer MEDICAID, SELFPAY ==
--- NOTE | ~2020-09-21 | US_ITS ---
EXAMINATION: US PELVIS AND TRANSVAGINAL CLINICAL INFORMATION: Pelvic pain. Question ovarian cyst rupture. Question fibroids. COMPARISON: CT abdomen and pelvis of 09/21/2020, pelvic ultrasound of 07/18/2019. TECHNIQUE: Real-time scanning of the pelvis is acquired via transabdominal and transvaginal approach. FINDINGS: An anteverted uterus is normal in size and contour. The uterus measures 6.7 x 2.7 x 4.1 cm in length, AP and transverse dimensions respectively. Endometrial stripe thickness is 0.3 cm. Myometrial parenchymal echotexture is homogeneous. No focal myometrial mass. Both ovaries are normal in size and appearance containing small follicles. Right ovary measures 3.2 x 2.1 x 1.8 cm with a volume of 6.3 mL. Left ovary measures 3.2 x 2.4 x 2.0 cm with a volume of 8.0 mL. There is no evidence of adnexal mass or free fluid. US/US pelvic and transvaginal IMPRESSION: Unremarkable pelvic ultrasound examination.
--- NOTE | ~2020-09-21 | CT_ITS ---
EXAMINATION: CT ABDOMEN AND PELVIS WITHOUT CONTRAST CLINICAL INFORMATION: Kidney stones COMPARISON: May 15, 2018 TECHNIQUE: Multidetector volumetric imaging was performed from the superior aspect of the liver through the pubic symphysis. Sagittal and coronal reformatted images were obtained on the technologist's workstation. This CT examination was performed using dose optimization techniques as appropriate, variously including the following: *Automated exposure control *Adjustment of mA and/or kV according to patient size (this includes techniques or standardized protocols for targeted exams where dose is matched to indication/reason for exam; i.e. extremities or head) *Use of iterative reconstruction technique DLP: 129 mGy-cm FINDINGS: There is breathing motion artifact. LUNG BASES: The visualized lung bases are unremarkable. No pleural or pericardial effusion. LIVER, GALLBLADDER, AND BILIARY TREE: The liver is normal in size, shape, and attenuation. No focal hepatic lesion or biliary ductal dilatation is present. The gallbladder is unremarkable with no evidence of radiopaque gallstones, gallbladder wall thickening, or obvious pericholecystic inflammatory changes. PANCREAS: Unremarkable. SPLEEN: Unremarkable. ADRENAL GLANDS: Unremarkable. KIDNEYS AND URETERS: The kidneys are normal in size, shape, and attenuation. No hydronephrosis, hydroureter, or calculi seen. No perinephric stranding. BLADDER: Unremarkable. GASTROINTESTINAL TRACT: No dilated loops of large or small bowel are evident. No free air or free fluid. No evidence of pericolonic inflammatory change. The appendix is visualized and appears unremarkable. ABDOMINAL WALL: No significant hernia is appreciated. LYMPH NODES: No lymphadenopathy appreciated. VASCULAR: Unremarkable. PELVIC VISCERA: Unremarkable. OSSEOUS STRUCTURES: No destructive bony lesion identified. Osteitis condensans ilii noted. CT/CT abdomen pelvis wo con IMPRESSION: No evidence of nephrolithiasis or obstructive uropathy.
--- NOTE | 2020-09-21 10:25 | ED.GENADULT ---
HPI - General Adult General Chief complaint: Abdominal Pain Stated complaint: vag bleeding Time Seen by Provider: 09/21/20 10:05 Source: patient Mode of arrival: ambulatory Limitations: no limitations History of Present Illness HPI narrative: Patient presents to ED for right suprapubic pain with vaginal bleeding. Patient states started having right suprapubic pain during menstruation and the bleeding stopped., but patient continued to have right suprapubic pain. Patient states her menstruation ended 3 days ago, but then this morning when she was wiping herself and saw blood. Patient states she had a pelvic exam to two weeks agos that was negative for STIs and UA was normal. Patient states she has had this intermittent right suprapubic pain for the past month and worsens usually during her menstrual cycles. Related Data Previous Rx's Medication Instructions Recorded nitrofurantoin monohyd/m-cryst 100 mg PO BID 7 Days #14 cap 04/07/20 [Macrobid] ibuprofen 800 mg PO TID PRN #60 tab 04/13/20 ondansetron 4 mg PO Q6H PRN #20 tab 04/13/20 docusate sodium 100 mg capsule 100 mg PO BID PRN #30 cap 04/16/20 oxycodone 5 mg tablet 5 mg PO Q6H PRN #14 tab 04/18/20 simethicone 125 mg capsule 125 mg PO BID-QID PRN #30 cap 04/21/20 magnesium citrate 300 ml PO DAILY PRN #296 ml 05/07/20 prenat.vits,concepcion,doy-xafr-xjebc 1 tab PO DAILY #90 tab 05/21/20 norgestimate 0.25 mg-ethinyl 1 tab PO DAILY #84 tab 07/17/20 estradiol 35 mcg tablet naproxen 500 mg PO BID PRN #20 tab 09/21/20 Allergies Allergy/AdvReac Type Severity Reaction Status Date / Time No Known Allergies Allergy Verified 06/10/20 13:01 [No Known Allergies*] Review of Systems Review of Systems: Yes all other systems are reviewed and are negative Constitutional: Constitutional: Reports as per HPI and Reports no additional constitutional complaints Eyes: Eyes: Reports as per HPI and Reports no additional eye complaints ENT: Reports system reviewed and no additional complaints, except as documented and Reports as per HPI Cardiovascular: Cardiovascular: Reports as per HPI and Reports no additional cardiovascular complaints Respiratory: Respiratory: Reports as per HPI and Reports no additional respiratory complaints Gastrointestinal: Gastrointestinal: Reports as per HPI and Reports no additional gastrointestinal complaints Genitourinary: Genitourinary: Reports no additional female genitourinary complaints, Reports as per HPI and Reports abnormal vaginal bleeding Comments: Right suprapubic pain Musculoskeletal: Musculoskeletal: Reports no additional musculoskeletal complaints and Reports as per HPI Neurologic: Reports system reviewed and no additional complaints, except as documented and Reports as per HPI Psychiatric: Psychiatric: Reports no additional psychiatric complaints and Reports as per HPI [facility] Past Medical History Medical History History of ectopic No known health problems Family History Family History Father HTN (hypertension) Social History Social History Alcohol intake: never Smoking Status: Never smoker Advance Directives: Yes Advance Directives Information Provided: Yes Advance Directives on File: No Patient : No Sexual orientation: Straight/Heterosexual Gender identity: female Physical Exam Vital Signs: Vital Signs: Last Vital Signs Temp 98.3 F 09/21/20 15:42 Pulse 65 09/21/20 15:42 Resp 16 09/21/20 15:42 BP 118/69 09/21/20 15:42 Pulse Ox 99 09/21/20 15:42 Body Mass Index 29.4 Const: General: cooperative, healthy appearing, comfortable, no acute distress, well developed, alert, awake and Physically active Orientation/consciousness: patient oriented x3 HENMT: Head: Yes normal to inspection, Yes No palpable skull fracture present, Yes normocephalic, Yes atraumatic and No abrasion Eyes: General: appearance normal, both eyes and all related structures Neck: Neck: Yes normal visual inspection, Yes full ROM, Yes no lymphadenopathy, Yes no meningeal signs, Yes trachea midline, Yes supple and No tender Chest: Chest palpation & inspection: normal inspection of the chest and normal palpation of entire chest wall Resp: Effort & Inspection: normal respiratory effort and able to speak in complete sentences Cardio: Jugular venous distension: no JVD Heart sounds: S1 normal heart sound present and S2 normal heart sound present GI: Inspection: Yes normal to inspection and No abdominal wall ecchymosis Palpation (GI): Soft to palpation, not firm, Tenderness to palpation present (GI) suprapubicly; not in the epigastrum, not in the LLQ, not in the RLQ, not in the LUQ, not in the RUQ, not at McBurney's point, not periumbilically, Valdivia's sign negative, obturator sign negative, psoas sign negative, with no rebound tenderness and Rovsing's sign negative, no guarding and not rigid : Other: Pelvic exam positive for slight blood in vaginal vault from cervix. Negative for adnexal mass tenderness or CMT. Negative for vaginal lesions of vaginal discharge. General: No CVA tenderness and Yes no CVA tenderness Back/Spine/Pelvis: Back: no CVA tenderness, No CVA tenderness and No back tenderness Skin: General skin exam: no rashes or lesions noted and elasticity normal Neuro: General: patient oriented x3, no meningeal signs and CN's II-XI intact bilaterally Cranial nerves: Yes CN's II-XII intact bilaterally Extrem: General: Yes normal to inspection and Yes full ROM Psych: Appearance: grossly normal, well kempt and not disheveled Course Course Course Narrative: Will do labs and UA. Will check for to make sure this is not ectopic. Reevaluation(s) Reevaluation #1: Patient is not . Abdominal CT scan negative for any abdominal etiologies. Waiting for ultrasound results. Labs are normal. Reevaluation #2: Ultrasound negative for any ovarian cysts or fibroids. Blood flow of the ovaries was not documented on ultrasound reading. Spoke with clinical pharmacy technician Mirela states there was good blood flow of ovaries during the exam and there was no pathology noticed by her or radiologist. Diagnosis dysmenorrhea. Medical Decision Making MDM Narrative Medical decision making narrative: Dysmenorrhea Lab Data Result diagrams: 09/21/20 10:59 09/21/20 10:59 Labs: Lab Results 09/21/20 09/21/20 09/21/20 Range/Units 10:59 10:59 10:59 WBC 4.3 L (4.8-10.8) X10*3/uL RBC 4.88 D (4.20-5.50) X10*6/uL Hgb 13.7 D (12.0-16.0) g/dl Hct 41.6 D (37-47) % MCV 85.2 (80-98) fL MCH 28.1 (27.0-33.0) pg MCHC 32.9 (31.0-35.0) g/dl RDW 12.8 (11.0-16.0) % Plt Count 251 D (160-400) X10*3/uL MPV 10.9 (9.4-12.3) fL Immature Gran % (Auto) 0.2 (0.0-0.4) % Neut % (Auto) 55.7 (45-73) % Lymph % (Auto) 35.9 (20-40) % [place] % (Auto) 7.3 (2-11) % Eos % (Auto) 0.7 (0-4) % Baso % (Auto) 0.2 (0-2) % Lymph # (Auto) 1.5 (1.2-4.9) X10*3/uL [place] # (Auto) 0.3 (0.1-1.2) X10*3/uL Eos # (Auto) 0.0 (0.0-0.4) X10*3/uL Baso # (Auto) 0.0 (0.0-0.2) X10*3/uL Abs Immat Gran (auto) 0.01 (0.00-0.03) X10*3/uL Absolute Neuts (auto) 2.4 (2.0-8.3) X10*3/uL Absolute Nucleated RBC 0.000 (0.0-0.012) X10*3/uL Nucleated RBC % (auto) 0.0 (0.0-0.2) /100WBC PT 14.2 H (10.8-13.0) SEC INR 1.2 H (0.9-1.1) APTT 38.7 H (24.1-38.0) SEC Sodium 139 (135-145) mmol/L Potassium 4.1 (3.3-5.1) mmol/L Chloride 105 (96-108) mmol/L Carbon Dioxide 26 (22-29) mmol/L Anion Gap 12 (12-20) BUN 11 (9-16) mg/dL Creatinine 0.81 (0.5-1.4) mg/dL Estim Creat Clear Calc TNP Estimated GFR > 60 Random Glucose 98 (60-115) mg/dL Calcium 9.7 D (8.4-10.2) mg/dL Total Bilirubin 0.5 (0.0-1.0) mg/dL Direct Bilirubin 0.2 (0.0-0.5) mg/dL AST 15 (5-31) U/L ALT 18 (0-31) U/L Alkaline Phosphatase 30 L (39-117) U/L Total Protein 8.3 H D (6.5-8.0) g/dL Albumin 4.6 (3.5-5.0) g/dL Lipase 26 (8-78) U/L Beta HCG, Quant < 2 mIU/mL Urine Color Urine Appearance Urine pH (5.0-8.0) Ur Specific [place] (1.005-1.025) Urine Protein (NEG-TRACE) MG/DL Urine Glucose (UA) (NEG) MG/DL Urine Ketones (NEG) MG/DL Urine Blood (NEG) Urine Nitrite (NEG) Ur Leukocyte Esterase (NEG) Urine RBC (0) /HPF Urine WBC (0-4) /HPF Ur Squamous Epith Cells /LPF Urine Bacteria /LPF Urine Test (NEGATIVE) Blood Type 09/21/20 09/21/20 09/21/20 Range/Units 10:59 10:59 11:14 WBC (4.8-10.8) X10*3/uL RBC (4.20-5.50) X10*6/uL Hgb (12.0-16.0) g/dl Hct (37-47) % MCV (80-98) fL MCH (27.0-33.0) pg MCHC (31.0-35.0) g/dl RDW (11.0-16.0) % Plt Count (160-400) X10*3/uL MPV (9.4-12.3) fL Immature Gran % (Auto) (0.0-0.4) % Neut % (Auto) (45-73) % Lymph % (Auto) (20-40) % [place] % (Auto) (2-11) % Eos % (Auto) (0-4) % Baso % (Auto) (0-2) % Lymph # (Auto) (1.2-4.9) X10*3/uL [place] # (Auto) (0.1-1.2) X10*3/uL Eos # (Auto) (0.0-0.4) X10*3/uL Baso # (Auto) (0.0-0.2) X10*3/uL Abs Immat Gran (auto) (0.00-0.03) X10*3/uL Absolute Neuts (auto) (2.0-8.3) X10*3/uL Absolute Nucleated RBC (0.0-0.012) X10*3/uL Nucleated RBC % (auto) (0.0-0.2) /100WBC PT (10.8-13.0) SEC INR (0.9-1.1) APTT (24.1-38.0) SEC Sodium (135-145) mmol/L Potassium (3.3-5.1) mmol/L Chloride (96-108) mmol/L Carbon Dioxide (22-29) mmol/L Anion Gap (12-20) BUN (9-16) mg/dL Creatinine (0.5-1.4) mg/dL Estim Creat Clear Calc Estimated GFR Random Glucose (60-115) mg/dL Calcium (8.4-10.2) mg/dL Total Bilirubin (0.0-1.0) mg/dL Direct Bilirubin (0.0-0.5) mg/dL AST (5-31) U/L ALT (0-31) U/L Alkaline Phosphatase (39-117) U/L Total Protein (6.5-8.0) g/dL Albumin (3.5-5.0) g/dL Lipase (8-78) U/L Beta HCG, Quant mIU/mL Urine Color YELLOW Urine Appearance CLEAR Urine pH 6.0 (5.0-8.0) Ur Specific [place] 1.015 (1.005-1.025) Urine Protein NEG (NEG-TRACE) MG/DL Urine Glucose (UA) NEG (NEG) MG/DL Urine Ketones NEG (NEG) MG/DL Urine Blood 2+ H (NEG) Urine Nitrite NEG (NEG) Ur Leukocyte Esterase NEG (NEG) Urine RBC 0-2 (0) /HPF Urine WBC 0 (0-4) /HPF Ur Squamous Epith Cells TRACE /LPF Urine Bacteria TRACE /LPF Urine Test NEGATIVE (NEGATIVE) Blood Type O Positive Discharge Plan Discharge Clinical Impression: Dysmenorrhea Patient Disposition: Home, Self-Care Instructions: Dysfunctional Uterine Bleeding (ED), Dysmenorrhea (ED) Additional Instructions: Regrese al servicio de urgencias de inmediato si tiene fiebre, escalofr?os, dolor en el costado, empeoramiento del dolor abdominal, n?useas, v?mitos, hematuria, disuria, empeoramiento del sangrado vaginal o cualquier otro s?ntoma preocupante. Patricia un seguimiento con rice PCP y OBGYN. La ecograf?a result? negativa para quistes ov?ricos o fibromas. La tomograf?a computarizada abdominal result? negativa para cualquier etiolog?a m?dica / quir?rgica emergente. Prescriptions: New naproxen 500 mg tablet 500 mg PO BID PRN (Reason: pain) Qty: 20 RF: 0 No Action norgestimate-ethinyl estradiol [Sprintec (28)] 0.25-35 mg-mcg tablet 1 tab PO DAILY Qty: 84 RF: 3 ibuprofen 800 mg tablet 800 mg PO TID PRN (Reason: pain) Qty: 60 RF: 1 ondansetron 4 mg tablet,disintegrating 4 mg PO Q6H PRN (Reason: nausea and vomiting) Qty: 20 RF: 0 nitrofurantoin monohyd/m-cryst [Macrobid] 100 mg capsule 100 mg PO BID 7 Days Qty: 14 RF: 0 docusate sodium [Colace] 100 mg capsule 100 mg PO BID PRN (Reason: constipation) Qty: 30 RF: 0 simethicone [Gas Relief (simethicone)] 125 mg capsule 125 mg PO BID-QID PRN (Reason: abdominal distention) Qty: 30 RF: 0 magnesium citrate Solution 300 ml PO DAILY PRN (Reason: constipation) Qty: 296 RF: 1 prenat.vits,concepcion,xuo-utoe-pvmtg Tablet 1 tab PO DAILY Qty: 90 RF: 3 oxycodone [Roxicodone] 5 mg tablet 5 mg PO Q6H PRN (Reason: pain) Qty: 14 RF: 0 Stand Alone Forms: Work/School Release Interventions: ED Discharge Assessment Last Done: 09/21/20 16:01 Discharge Date/Time: 09/21/20 16:03 Print Language: Slovenian
[2020-09-21] MEDS: 0.9 % Sodium Chloride 1,000 ML 999 ML IV (11:01)
[2020-09-21 11:08] LABS: MANUAL DIFF FLAG NO
[2020-09-21 11:09] LABS: Basophils Percent Auto 0.2 % (0-2); Eosinophils Percent Auto 0.7 % (0-4); Hematocrit 41.6 % (37-47); Hemoglobin 13.7 g/dl (12.0-16.0); Imm Gran Abs Auto 0.01 X10*3/uL (0.00-0.03); Imm Gran Pct Auto 0.2 % (0.0-0.4); Lymphocytes Absolute Auto 1.5 X10*3/uL (1.2-4.9); Lymphocytes Percent Auto 35.9 % (20-40); Mean Corpuscular HGB Conc 32.9 g/dl (31.0-35.0); Mean Corpuscular Hemoglobin 28.1 pg (27.0-33.0); Mean Corpuscular Volume 85.2 fL (80-98); Mean Platelet Volume 10.9 fL (9.4-12.3); Monocytes Absolute Auto 0.3 X10*3/uL (0.1-1.2); Monocytes Percent Auto 7.3 % (2-11); Neutrophils Absolute Auto 2.4 X10*3/uL (2.0-8.3); Neutrophils Percent Auto 55.7 % (45-73); Platelet Count 251 X10*3/uL (160-400); Red Blood Count 4.88 X10*6/uL (4.20-5.50); Red Cell Distribution Width 12.8 % (11.0-16.0); White Blood Count 4.3 X10*3/uL (4.8-10.8)
[2020-09-21 11:10] LABS: Glucose Urine UA NEG (NEG); Leukocyte Esterase Urine NEG (NEG); Nitrite Urine NEG (NEG); Specific Gravity - Urine 1.015 (1.005-1.025); Urine Blood 2+ (NEG); Urine Ketones NEG (NEG); Urine Protein NEG (NEG-TRACE)
[2020-09-21 11:12] LABS: Appearance Urine CLEAR; Color Urine YELLOW
[2020-09-21 11:23] LABS: INTERNATIONAL NORM RATIO 1.2 (0.9-1.1); Prothrombin Time 14.2 SEC (10.8-13.0)
[2020-09-21 11:29] LABS: Alanine Aminotransferase 18 U/L (0-31); Albumin Level 4.6 g/dL (3.5-5.0); Alkaline Phosphatase 30 U/L (39-117); Anion Gap 12 (12-20); Aspartate Amino Transferase 15 U/L (5-31); Bilirubin Direct 0.2 mg/dL (0.0-0.5); Bilirubin Total 0.5 mg/dL (0.0-1.0); Blood Urea Nitrogen 11 mg/dL (9-16); Calcium 9.7 mg/dL (8.4-10.2); Carbon Dioxide 26 mmol/L (22-29); Chloride 105 mmol/L (96-108); Estimated Glomerular Filt Rate > 60; Glucose Random 98 mg/dL (60-115); Lipase 26 U/L (8-78); Potassium 4.1 mmol/L (3.3-5.1); Sodium 139 mmol/L (135-145); Total Protein 8.3 g/dL (6.5-8.0)
[2020-09-21 11:30] LABS: Partial Thromboplastin Time 38.7 SEC (24.1-38.0)
[2020-09-21 11:34] LABS: HCG Quantitative < 2 mIU/mL
[2020-09-21 11:35] LABS: Bacteria Urine TRACE /LPF; RBC Urine 0-2 /HPF (0); Squamous Epithelial Cell Urine TRACE /LPF; WBC Urine 0 /HPF (0-4)
[2020-09-21 11:36] LABS: UPreg QC Valid YES; Urine Pregnancy NEGATIVE (NEGATIVE)
[2020-09-21 12:14] VITALS: BP 139/78; PULSE 64; RESP 18; TEMP 36.9; O2SAT 100; BMI 29.4
[2020-09-21] MEDS: Ketorolac Tromethamine 30 MG/ML VIAL IVPUSH (12:45)
[2020-09-21 15:42] VITALS: BP 118/69; PULSE 65; RESP 16; TEMP 36.8; O2SAT 99
== END 2020-09-21 16:03 | disposition home or self-care (01) ==
PROVIDERS: Physician Assistant; Emergency Provider Emergency Medicine
DX: N94.4 Primary dysmenorrhea (principal); N93.8 Other specified abnormal uterine and vaginal bleeding; R10.10 Upper abdominal pain, unspecified; Z79.899 Other long term (current) drug therapy
CPT/HCPCS: 36415; 74176; 76830; 76856; 80053; 80076; 81001; 81025; 82248; 83690; 84702; 85025; 85610; 85730; 86900; 86901; 96365; 96375; 99284; J1885

== ENCOUNTER 2021-08-13 07:58 | Outpatient (REF) | payer MEDICAID, SELFPAY ==
--- NOTE | ~2021-08-13 | US_ITS ---
EXAMINATION: US PELVIS CLINICAL INFORMATION: Lower pelvic pain COMPARISON: Pelvic ultrasound 09/21/2020 TECHNIQUE: Ultrasound of the pelvis is performed using both transabdominal and transvaginal transducers along with Doppler. Transvaginal imaging is performed due to inadequate visualization transabdominally. FINDINGS: Uterus: The uterus is anteverted and measures 6.3 x 2.8 x 4.3 cm. The double wall endometrial thickness is 7.5 mm. The uterus is smooth in contour and has normal myometrial echogenicity. No visible fibroid. Adnexa: Both ovaries are visualized. There is normal color flow to the adnexa. There is no ovarian torsion. There is no pelvic ascites or fluid collection. Right ovary measures 2.9 x 1.4 x 1.3 cm. Left ovary measures 4 x 3 x 2.3 cm. There is a small amount of free fluid in the cul-de-sac and in the bilateral adnexa. US/US pelvic and transvaginal IMPRESSION: Small amount of nonspecific free fluid in the cul-de-sac and the bilateral adnexa. Otherwise normal pelvic ultrasound.
--- NOTE | ~2021-08-13 | US_ITS ---
EXAMINATION: US ABDOMEN LIMITED CLINICAL INFORMATION: Lump right lower quadrant, ?inguinal hernia. COMPARISON: CT abdomen and pelvis without contrast dated 09/21/2020. TECHNIQUE: Real-time imaging of the right lower quadrant soft tissues, in the area as indicated by the patient FINDINGS: In the area of clinical interest in the right lower quadrant, there is no mass, fluid collection, free fluid or hernia. The subcutaneous soft tissues are unremarkable and are symmetric as compared to the left. US/US abdomen limited IMPRESSION: No mass, fluid collection, or hernia in the right lower quadrant in the area as indicated by the patient.
== END 2021-08-13 07:59 | disposition home or self-care (01) ==
LOC: HO.HMGCX 07:58
PROVIDERS: PCP Internal Medicine; Visit Provider Internal Medicine
DX: R10.2 Pelvic and perineal pain (principal); K40.90 Unilateral inguinal hernia, without obstruction or gangrene, not specified as recurrent
CPT/HCPCS: 76705; 76830; 76856

== ENCOUNTER 2023-07-04 15:41 | Outpatient (REF) | payer MEDICAID, OTHER, SELFPAY ==
[2023-07-04 17:26] LABS: MANUAL DIFF FLAG NO
[2023-07-04 17:34] LABS: Basophils Percent Auto 0.4 % (0-2); Eosinophils Percent Auto 0.4 % (0-4); Hematocrit 37.7 % (37.0-47.0); Hemoglobin 12.7 g/dl (12.0-16.0); Imm Gran Abs Auto 0.01 X10*3/uL (0.00-0.03); Imm Gran Pct Auto 0.2 % (0.0-0.4); Lymphocytes Absolute Auto 1.7 X10*3/uL (1.2-4.9); Lymphocytes Percent Auto 29.6 % (20-40); Mean Corpuscular HGB Conc 33.7 g/dl (31.0-35.0); Mean Corpuscular Hemoglobin 29.4 pg (27.0-33.0); Mean Corpuscular Volume 87.3 fL (80.0-98.0); Mean Platelet Volume 11.6 fL (9.4-12.3); Monocytes Absolute Auto 0.6 X10*3/uL (0.1-1.2); Monocytes Percent Auto 10.5 % (2-11); Neutrophils Absolute Auto 3.4 x10*3/uL (2.0-8.3); Neutrophils Percent Auto 58.9 % (45-73); Platelet Count 220 X10*3/uL (160-400); Red Blood Count 4.32 X10*6/uL (4.20-5.50); Red Cell Distribution Width 13.3 % (11.0-16.0); White Blood Count 5.7 X10*3/uL (4.8-10.8)
[2023-07-04 17:39] LABS: Estimated Average Glucose 105 mg/dL; Hemoglobin A1c % 5.3 % (<6.0)
[2023-07-04 17:41] LABS: Anion Gap 12 (12-20); Blood Urea Nitrogen 12 mg/dL (9-16); Calcium 9.2 mg/dL (8.4-10.2); Carbon Dioxide 24 mmol/L (22-29); Chloride 107 mmol/L (96-108); Estimated Glomerular Filt Rate > 60; Glucose Random 85 mg/dL (60-115); Potassium 3.8 mmol/L (3.3-5.1); Sodium 139 mmol/L (135-145)
[2023-07-05 07:48] LABS: HIV AB/AG Nonreactive (Nonreactive); HIV Num 1 0.05 S/CO (0.00-0.99); ~HepC Num1 0.08 S/CO (0.00-0.79); ~Hepatitis C Antibody Nonreactive (Nonreactive)
== END 2023-07-04 15:42 | disposition home or self-care (01) ==
LOC: HO.HHCL 15:41
PROVIDERS: Visit Provider Internal Medicine
DX: I10 Essential (primary) hypertension (principal)
CPT/HCPCS: 36415; 80048; 83036; 85025; 86803; 87389

== ENCOUNTER → 2023-12-28 13:53 | Outpatient (RCR) | payer MEDICAID, SELFPAY ==
[2020-04-18 12:07] VITALS: BP 134/65; PULSE 70; RESP 18; TEMP 36.8; O2SAT 98; BMI 32.5
[2020-04-18] MEDS: metHOTREXate sodium 125 MG/5 ML SYRINGE 94 MG IM (13:34)
--- NOTE | 2020-04-18 15:17 | MHC.HEMONC ---
Addendum entered by Dionna Arambula RN 04/18/20 15:24: She leopoldo well and will f/u with her OB. Original Note: Pt here for MTX IM per Dr Cardozo for suspected ectopic. This will be her 2nd dose. Labs reviewed and pt had consent. Chemo given by 2 RNs dylan [place] [facility]
== END | disposition home or self-care (01) ==
LOC: HO.ONC 04-18 12:01
PROVIDERS: PCP Internal Medicine; Visit Provider Obstetrics & Gynecology
DX: O00.90 Unspecified ectopic pregnancy without intrauterine pregnancy (principal)
CPT/HCPCS: 96401; J9250

== ENCOUNTER 2024-04-13 17:31 | Outpatient (REF) | payer MEDICAID, OTHER, SELFPAY ==
--- OUTSIDE RECORDS SUMMARY | 2024-04-13 17:33 | XMS_ITS | Continuity of Care Document ---
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 Name Role Phone Unavailable Unavailable Unavailable Allergies, Adverse Reactions, Alerts Substance Reaction Status Criticality No Known Allergies Active No Inform ation Medications Medication Instructions Dosage Effective Dates (start - stop) Status Comments No Drug Therapy Prescribed Procedures Procedure Date Comprehensive Oral Evaluation-New Or Est ablished P Treatment Plan Not Started Prophylaxis-Adult Oral Hygiene Instructions Bitewings-Four Films Intraoral-Periapical First Film 018 Intraoral-Periapical Each Additional Parveen m Treatment Plan Not Started Advance Directives Directive Yes / No Effective Date File Name No Information Encounters Encounter Description Practice Location Reason(s) For Visit Diagnoses Date Provider Providers Copied on Encounter [facility], [address] [place], [address], tel:[phone] [facility] Dental Encounter for screening for dental disorders No Information [facility], [address] [place], [address], [place] tel:[phone] [facility] Dental Encounter for dental exam and cleaning w/o abnormal findings Delano Beasley. [address] [facility], [id number] [place], [id number], [place]. tel:[phone] Family History Family Member Type Diagnosis Age At Onset No Information Payers Payer name Insurance type Covered green party ID Isabel ruelas(s) D Slide [id number] Social History Type Description Quantity Date Captured Comments Alcohol Use Details Unknown Caffeine Use Details Unknown Tobacco Use Status Current non-smoker 20 Smoking Status Never smoker Non-Smoking Tobacco Use Details : No Details Available : No Details Available Sex Female Vital Signs Date / Time: Height Weight BMI Pulse Rate Blood Pressure Temperature Respiratory Rate Body Surface Area Head Circumference Head Circ. Percentile Wt./Vitaly. Percentile BMI percentile Pulse Ox Inhaled Ox 8:36 AM 94 /min 143/98 mm[Hg] Chief Complaint And Reason For Visit No Information Reason For Referral Reason For Referral No Information History Of Present Illness Encounter Date Complaint History Of Prese nt Illness No Information Functional Status Date Functional Assessmen t No Information Medications Administered Medication Instructions Dosage Effective Dates (start - stop) Status Comments No Drug Therapy Prescribed Instructions Date Instruction Additional Infor mation No Information Assessments Type Assessment Date No Information Patient Care Teams Name Effective Dates (start - stop) Status Members No Information
[2024-04-14 02:50] LABS: CT PCR NOT DETECTED (Not Detect.); NG PCR NOT DETECTED (Not Detect.)
[2024-04-14 09:31] LABS: Bacterial Vaginosis PCR NEGATIVE (Negative); Candida Group PCR NOT DETECTED (Not Detect); Candida glab krusei PCR NOT DETECTED (Not Detect); Trichomonas vaginalis PCR NOT DETECTED (Not Detect)
[2024-04-16 10:48] LABS: HPV 16,18/45 See PAP report
== END 2024-04-13 17:32 | disposition home or self-care (01) ==
LOC: HO.HHCLNP 17:31
PROVIDERS: Visit Provider Internal Medicine
DX: R30.0 Dysuria (principal); N94.9 Unspecified condition associated with female genital organs and menstrual cycle; Z12.4 Encounter for screening for malignant neoplasm of cervix
CPT/HCPCS: 0352U; 87255; 87491; 87591; 87624; 88175